=== PATIENT | female | born 1935 | race Caucasian/White ===

== ENCOUNTER 2018-03-04 21:56 | Emergency (ER) | payer MEDICARE, OTHER ==
[~2018-03-04] VITALS: Ht 162.6 cm; Wt 87.1 kg
[~2018-03-04 21:56] MED LIST: BYSTOLIC10 MG; IBUPROFEN 800800 MG PO; NORVASC 2.5 MG2.5 M1 PO; PROPRANOLOL 8080 MG; PROTONIX40 MG PO; PROVENTIL; SYNTHROID100 MCG; ULTRAM 50MG TAB50 MG PO; VALIUM5 MG; VESICARE10 M1; XALATAN2.5 ML OPHTHALMIC; ZYRTEC10 M5 PO
[2018-03-04 23:18] VITALS: BP 188/81
== END 2018-03-04 23:19 | disposition home or self-care (01) ==
LOC: M.ERS 21:56
DX: S63.591A Other specified sprain of right wrist, initial encounter (principal); I10 Essential (primary) hypertension; J45.909 Unspecified asthma, uncomplicated; Z88.8 Allergy status to other drugs, medicaments and biological substances; Z88.6 Allergy status to analgesic agent; Z88.5 Allergy status to narcotic agent; Z88.0 Allergy status to penicillin; Z88.2 Allergy status to sulfonamides; W18.39XA Other fall on same level, initial encounter; Y93.89 Activity, other specified; Y92.89 Other specified places as the place of occurrence of the external cause; Y99.8 Other external cause status

== ENCOUNTER 2018-03-16 09:32 | Inpatient (IN) | payer MEDICARE, OTHER ==
[~2018-03-16] VITALS: Ht 162.6 cm; Wt 86.1 kg
[2018-03-16 09:36] VITALS: BP 205/76
[2018-03-16] MEDS ORDERED: SYNTHROID175 MCG PO (09:43)
[2018-03-16] MEDS ORDERED: CLONAZEPAM 1 MG1 M1 PO (09:44)
[2018-03-16 09:50] LABS: ABSOLUTE EOSINOPHILS 0.1 thou/uL (0.0-0.7); ABSOLUTE LYMPHOCYTES 3.1 thou/uL (0.8-5.3); ABSOLUTE MONOCYTES 0.8 thou/uL (0.0-1.2); ABSOLUTE NEUTROPHILS 4.2 thou/uL (1.6-8.1); BASOPHILS 0.6 %; HEMATOCRIT 38.9 % (37.0-47.0); HEMOGLOBIN 13.3 gm/dL (12.0-15.0); LYMPHOCYTES 37.6 %; MCH 29.9 pg (26.0-34.0); MCHC 34.2 g/dL (28.0-37.0); MCV 87.4 fL (80.0-100.0); MONOCYTES 9.3 %; MPV 9.5 fl. (7.2-11.1); NUCLEATED RBCS 0 /100WBC; PLATELET COUNT* 212 thou/uL (150-400); POLYS 51.5 %; RBC 4.45 mil/uL (4.20-5.00); RDW-CV 13.8 % (10.5-14.5); WBC 8.2 thou/uL (4.0-11.0)
--- NOTE | 2018-03-16 09:55 | NUR ---
PATIENT COMPLAINS OF SHARP TYPE OF CHEST DISCOMFORT THAT BEGAN TODAY AT APPROX 0830 PATIENT DENIES RADIATION OF DISCOMFORT PAIN LASTS FOR "A SECOND" AND THEN RESOLVES ON ITS OWN. DENIES N/V DENIES DIAPHORESIS PATIENT IS CURRENTLY PAIN FREE
[2018-03-16 09:59] LABS: ANION GAP 7 mmol/L (7-16); BUN 22 mg/dL (7-18); CALCIUM 9.4 mg/dL (8.5-10.1); CHLORIDE 105 mmol/L (98-107); CO2 28 mmol/L (21-32); CREATININE 1.1 mg/dL (0.6-1.3); GLUCOSE 129 mg/dL (70-99); POTASSIUM 4.2 mmol/L (3.5-5.1); SODIUM 140 mmol/L (136-145)
[2018-03-16 10:02] LABS: INR 1.1; PROTIME 10.6 Seconds (9.20-11.50)
[2018-03-16 10:18] LABS: ALBUMIN 3.6 g/dL (3.4-5.0); ALKALINE PHOSPHATASE 65 U/L (46-116); LIPASE 125 U/L (73-393); MAGNESIUM 1.8 mg/dL (1.8-2.4); NT-PRO BRAIN NAT PEPTIDE 142 pg/mL (<300); SGOT 19 U/L (15-37); SGPT 21 U/L (30-65); TOTAL BILIRUBIN 0.5 mg/dL (<0.1-1.0); TOTAL PROTEIN 7.2 g/dL (6.4-8.2)
--- NOTE | 2018-03-16 10:26 | NUR ---
DR RENEE TO EVALUATE
[2018-03-16 10:32] LABS: TROPONIN-I LEVEL <0.06 ng/mL (<0.06)
[2018-03-16 12:54] VITALS: BP 166/77
[2018-03-16 13:15] VITALS: BP 159/63
[2018-03-16] MEDS ORDERED: CLARITIN10 MG PO (14:26)
[2018-03-16] MEDS ORDERED: VITAMIN D3400 UNIT PO (14:27)
[2018-03-16 15:53] VITALS: BP 148/56
--- NOTE | 2018-03-16 18:58 | NUR ---
PT ADMITTED TO ROOM 209 VIA CART FROM ED AT APPROXIMATELY 1315 WITH CHEST PAIN. REPORT RECEIVED FROM FELIZ ED RN. PT ORIENTED TO ROOM AND CALL LIGHT. ADMISSION ASSESSMENT AND HISTORY COMPLETED. REFER TO CHARTING. PT A&0X4, DENIES ANY PAIN OR SHORTNESS OF BREATH AT THIS TIME. NEIGHBOR AT BEDSIDE. PT DENIES ANY CHEST PAIN. PT TRACING SR ON THE CLOCK AND WATCH HANDS DIPPER. ON RA SAT UPPER 90'S. PT UP WITH 1 ASSIST TO BATHROOM. PT HAS BRACE FOR RIGHT ARM TO USE PRN FROM RECENT INJURY. CARDIOLOGY CONSULT IN PLACE. NO NEW ORDERS RECEIVED AT THIS TIME. TROPONINS NEGATIVE X2. MEDICATIONS PER JAN. PT REPOSITIONS SELF. HOURLY ROUNDING OBSERVED. BED IN LOW POSITION. BED ALARM IN PLACE. FALL PRECAUTIONS IN PLACE. CALL LIGHT WITHIN REACH. WILL CONTINUE PLAN OF CARE.
[2018-03-16 20:00] VITALS: BP 148/73
[2018-03-17] VITALS (7 sets, daily range): BP systolic 127–165; BP diastolic 52–72
[2018-03-17 05:10] LABS: ABSOLUTE BASOPHILS 0.1 thou/uL (0.0-0.2); ABSOLUTE EOSINOPHILS 0.1 thou/uL (0.0-0.7); ABSOLUTE LYMPHOCYTES 3.3 thou/uL (0.8-5.3); ABSOLUTE MONOCYTES 0.9 thou/uL (0.0-1.2); ABSOLUTE NEUTROPHILS 3.7 thou/uL (1.6-8.1); BASOPHILS 0.6 %; EOSINOPHILS 1.8 %; HEMATOCRIT 38.2 % (37.0-47.0); HEMOGLOBIN 12.6 gm/dL (12.0-15.0); LYMPHOCYTES 40.5 %; MCH 29.2 pg (26.0-34.0); MCHC 33.1 g/dL (28.0-37.0); MCV 88.1 fL (80.0-100.0); MONOCYTES 10.6 %; NUCLEATED RBCS 0 /100WBC; PLATELET COUNT* 192 thou/uL (150-400); POLYS 46.5 %; RBC 4.33 mil/uL (4.20-5.00); RDW-CV 13.8 % (10.5-14.5)
[2018-03-17 05:20] LABS: CALCIUM 8.9 mg/dL (8.5-10.1); CREATININE 1.2 mg/dL (0.6-1.3); POTASSIUM 3.9 mmol/L (3.5-5.1)
--- NOTE | 2018-03-17 07:45 | NUR ---
PATIENT RESTED IN BED NO ACUTE CHANGES. PATIENT DID NOT COMPLAIN OF CHEST PAIN. PATIENT DID NOT SHOW SIGNS OF DISTRESS. FALL PRECAUTIONS IN PLACE, BED ALARM ON, CALL LIGHT WITHIN.
--- NOTE | 2018-03-17 07:48 | NUR ---
PATIENT RESTED IN BED. PATIENT IS NPO, NO ACUTE CHANGES. PATIENT DID NOT SHOW SIGNS OF DISTRESS. FALL PRECAUTIONS IN PLACE, CALL LIGHT WITHIN REACH, BED ALARM ON. PATIENT PULLED OUT IV'S, NEW IV STARTED.
--- NOTE | 2018-03-17 12:07 | NUR ---
ASSUMED CARE OF PT AT 0730. PT RESTING IN BED WAITING FOR BREAKFAST. PT A&0X4, DENIES ANY PAIN OR SHORTNESS OF BREATH. PT IS READY TO GO HOME AND WANTS TO FOLLOW UP WITH DR ADALID STORM. PT STATES SHE HAS HAD NO CHEST PAIN TODAY BUT DID HAVE 2 EPISODES OVER NIGHT AT APPROXIMATELY 2030 AND 2100 WHERE PAIN WAS IN LEFT AXILLARY THAT LASTED A SHORT AMOUNT OF TIME. PT TRACING SR ON THE EXTRUDING PRESS ADJUSTER. ON RA SAT UPPER 90'S. PT UP SBA TO BATHROOM. POSSIBLE DISCHARGE HOME TODAY PENDING CARDIOLOGY. AM ASSESMENT CHARTED. MEDICATIONS PER JAN. PT REPOSITIONS SELF. HOURLY ROUNDING OBSERVED. BED IN LOW POSITION. BED ALARM IN PLACE. FALL PRECAUTIONS IN PLACE. CALL LIGHT WITHIN REACH. WILL CONTINUE PLAN OF CARE.
--- NOTE | 2018-03-17 13:47 | NUR ---
DISCHARGE ORDERS RECEIVED. DISCHARGE INSTRUCTIONS, CARE NOTES AND FOLLOW UP APPTS GIVEN TO PT. PT COMMUNICATES UNDERSTANDING OF DISCHARGE TEACHING. IV AND EXCHANGE ENGINEER REMOVED. PT DISCHARGED WITH ALL BELONGINGS AND PAPERWORK VIA WHEELCHAIR WITH NURSING STAFF TO FRIENDS OWN PERSONAL VEHICLE.
--- NOTE | 2018-03-17 16:52 | EKG ---
[place] [address] ELECTROCARDIOGRAM REPORT Name: JUAN F DING Room: [address] DIS IN M.R.#: [id number] Admission: 03/16/18 Attend Phys: Farhad Khoury MD Discharge: 03/17/18 Date of : 35 Report #: [id number] THIS REPORT FOR: //name// [facility] Test Date: 2018-03-16 Test Time: 09:38:32 Pat Name: JUAN F DING Department: Room: [address] Gender: F Cripple Chaser: FABIO : 1935 Requested By: Everardo Roberto Order Number: [id number] Olena MD: Niles Gamez Measurements Intervals [place] Rate: 78 P: -7 [place]: 135 QRS: 53 QRSD: 96 T: 34 QT: 368 QTc: 420 Interpretive Statements Sinus rhythm Compared to ECG 01/02/2013 04:38:08 ST (T wave) deviation no longer present Electronically Signed On 03-17-2018 16:52:01 CDT by Niles Gamez [email or web address] <ELECTRONICALLY SIGNED> By: Niles Gamez MD, [facility] 03/17/18 7766 0938 0938 Niles Gamez MD, [facility] /EPI
--- NOTE | 2018-03-17 16:53 | EKG ---
[place] [address] ELECTROCARDIOGRAM REPORT Name: JUAN F DING Room: [address] IN M.R.#: [id number] Admission: 03/16/18 Attend Phys: Farhad Khoury MD Discharge: 03/17/18 Date of : 35 Report #: [id number] THIS REPORT FOR: //name// [facility] Test Date: 2018-03-16 Test Time: 15:57:34 Pat Name: JUAN F DING Department: Room: [address] Gender: F Construction Laborer: : 1935 Requested By: Everardo Roberto Order Number: [id number] Olena MD: Niles Gamez Measurements Intervals [place] Rate: 69 P: 58 [place]: 138 QRS: 11 QRSD: 99 T: 24 QT: 404 QTc: 433 Interpretive Statements Sinus rhythm Compared to ECG 01/02/2013 04:38:08 ST (T wave) deviation no longer present Electronically Signed On 03-17-2018 16:53:40 CDT by Niles Gamez [email or web address] <ELECTRONICALLY SIGNED> By: Niles Gamez MD, [facility] 03/17/18 1653 1557 1557 Niles Gamez MD, [facility] /EPI
--- NOTE | 2018-03-17 16:56 | EKG ---
[place] [address] ELECTROCARDIOGRAM REPORT Name: JUAN F DING Room: [address] IN M.R.#: [id number] Admission: 03/16/18 Attend Phys: Farhad Khoury MD Discharge: 03/17/18 Date of : 35 Report #: [id number] THIS REPORT FOR: //name// [facility] Test Date: 2018-03-16 Test Time: 22:11:14 Pat Name: JUAN F DING Department: Room: [facility] Gender: F Cycle Analyst: DELILAH : 1935 Requested By: Everardo Roberto Order Number: [id number] MD: Niles Gamez Measurements Intervals [place] Rate: 70 P: 62 [place]: 135 QRS: -1 QRSD: 95 T: 24 QT: 389 QTc: 420 Interpretive Statements Sinus rhythm Compared to ECG 01/02/2013 04:38:08 ST (T wave) deviation no longer present Electronically Signed On 03-17-2018 16:56:32 CDT by Niles [email or web address] <ELECTRONICALLY SIGNED> By: Niles Gamez MD, [facility] 03/17/18 1656 221 10 Niles Gamez MD, [facility] /EPI
--- NOTE | 2018-03-17 18:00 | CON ---
[address] [address] CONSULTATION Name: JUAN F DING Room: [address] IN ..#: [id number] Admission: 03/16/18 Attend Phys: Farhad Khoury MD Discharge: 03/17/18 Date of : 35 Report #: [id number] THIS REPORT FOR: //name// CC: Farhad Greene MD [facility] Rakesh Antoinette Curry DO DATE OF SERVICE: 03/16/2018 INDICATION: Chest pain. HISTORY OF PRESENT ILLNESS: The patient is a very pleasant 82-year-old white female with a history of apparent aortic stenosis and left ventricular hypertrophy and possible outflow tract obstruction. She presented to the Emergency Room this morning with complaints of a sharp pain starting in the left breast area and radiating down toward her waist. The symptom recurred several times lasting a few seconds each time. The pain has now resolved. She is without other significant complaint. She does have dyspnea on exertion, but denies any orthopnea or paroxysmal nocturnal dyspnea. She does report some lower extremity swelling on occasion. PAST MEDICAL HISTORY: 1. Aortic stenosis with possible left ventricular outflow tract obstruction and left ventricular hypertrophy. 2. Hypertension. 3. Hyperlipidemia. 4. Asthma. 5. History of skin cancer under her right eyelid status post surgical resection. PAST SURGICAL HISTORY: 1. Cholecystectomy. 2. Hysterectomy. 3. Bilateral foot surgery. FAMILY HISTORY: Positive for heart disease. SOCIAL HISTORY: The patient does not smoke. She does not drink. She is . She has 3 sons. ALLERGIES: METOPROLOL, TYLENOL, CODEINE, PENICILLIN, SULFA. HOME MEDICATIONS: Amlodipine 2.5 mg daily, vitamin D3 400 units daily, clonazepam 1 mg at bedtime, Xalatan eye drops 1 drop at bedtime, Synthroid 175 mcg daily, Claritin [place] [address] CONSULTATION Name: JUAN F DING Room: [address]#: [id number] Admission: 03/16/18 Attend Phys: Farhad Khoury MD Discharge: 03/17/18 Date of : 35 Report #: [id number] REVIEW OF SYSTEMS: A 14-point review of systems is positive for some mild weakness of her right foot. She has palpitations on occasion. She reports chest discomfort, dyspnea. She has a heart murmur. She has lower extremity edema. She reports hypothyroidism. She has a history of anemia prior to her hysterectomy. She has history of skin cancer as outlined above. She reports seasonal and medical allergies. 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 She wears reading glasses. She has no acute loss in vision. She has decreased hearing. PHYSICAL EXAMINATION: VITAL SIGNS: Stable. Blood pressure 148/56, pulse is 70 and regular. GENERAL: This is a pleasant lady in no distress. Mood and affect appropriate. HEENT: Extraocular muscles intact. Mucous membranes are moist. NECK: Shows no jugular venous distention. There is a cardiac murmur radiating to the carotids bilaterally. CHEST: Reveals clear lung roman without wheezes or rales. CARDIOVASCULAR: Reveals a regular rhythm with a grade 3/6 systolic ejection murmur. I do not appreciate a gallop. ABDOMEN: Reveals normal bowel sounds. The abdomen is soft and nontender. EXTREMITIES: Shows trace edema. SKIN: Warm and dry. Peripheral pulses 2+ and palpable. IMPRESSION AND RECOMMENDATION: 1. Atypical chest pain. The patient has ruled out thus far for myocardial infarction. Would recommend completing an evaluation with serial troponins. EKG appears unremarkable. 2. Aortic stenosis, currently follows with outside Cardiology in the fashion of surveillance at this time. 3. Hypertension. Blood pressure appears to be adequately controlled presently. 4. Hyperlipidemia, apparently being followed by outside physician. <ELECTRONICALLY SIGNED> By: Niles Gamez MD, [facility]ACC 03/17/18 1800 1600 1750Micveronica Gamez MD, FACC /nt
== END 2018-03-17 13:50 | disposition home or self-care (01) | DRG 307 ==
LOC: M.ERS 09:32 → M.TBA-ER 10:14 → M.2W 10:14
PROVIDERS: Family Medicine; ADMIT Internal Medicine
DX: I35.0 Nonrheumatic aortic (valve) stenosis (principal); I12.9 Hypertensive chronic kidney disease with stage 1 through stage 4 chronic kidney disease, or unspecified chronic kidney disease; N18.3 Chronic kidney disease, stage 3 (moderate); I20.9 Angina pectoris, unspecified; M19.90 Unspecified osteoarthritis, unspecified site; E78.5 Hyperlipidemia, unspecified; J45.30 Mild persistent asthma, uncomplicated; Z88.5 Allergy status to narcotic agent; Z88.0 Allergy status to penicillin; Z88.2 Allergy status to sulfonamides; Z88.8 Allergy status to other drugs, medicaments and biological substances; Z90.49 Acquired absence of other specified parts of digestive tract; Z90.710 Acquired absence of both cervix and uterus; Z82.49 Family history of ischemic heart disease and other diseases of the circulatory system; Z79.899 Other long term (current) drug therapy

== ENCOUNTER → 2018-07-10 | Outpatient (CLI) | payer MEDICARE, OTHER ==
[~2018-07-10] MED LIST changes: +CLARITIN10 MG PO; +CLONAZEPAM 1 MG1 M1 PO; +SYNTHROID175 MCG PO; +VITAMIN D3400 UNIT PO
[2018-07-10 12:13] LABS: HEMATOCRIT 38.8 % (37.0-47.0); MCH 29.6 pg (26.0-34.0); MCHC 33.5 g/dL (28.0-37.0); MCV 88.5 fL (80.0-100.0); MPV 9.5 fl. (7.2-11.1); RBC 4.39 mil/uL (4.20-5.00); RDW-CV 14.1 % (10.5-14.5); WBC 8.4 thou/uL (4.0-11.0)
[2018-07-10 12:37] LABS: CALCIUM 9.5 mg/dL (8.5-10.1); CREATININE 1.1 mg/dL (0.6-1.3); POTASSIUM 4.4 mmol/L (3.5-5.1)
== END ==
LOC: M.LAB 11:43
PROVIDERS: Podiatrist
DX: Z01.812 Encounter for preprocedural laboratory examination (principal); I10 Essential (primary) hypertension; J45.909 Unspecified asthma, uncomplicated

== ENCOUNTER 2020-02-04 13:14 | Inpatient (IN) | payer MEDICARE, OTHER ==
[~2020-02-04] VITALS: Ht 165.1 cm; Wt 81.2 kg
[~2020-02-04 13:14] MED LIST changes: -VITAMIN D3400 UNIT PO; +VITAMIN D35000 UNI2 PO
[2020-02-04 13:19] VITALS: BP 152/108
[2020-02-04 13:42] LABS: ABSOLUTE EOSINOPHILS 0.1 thou/uL (0.0-0.7); ABSOLUTE LYMPHOCYTES 1.2 thou/uL (0.8-5.3); ABSOLUTE MONOCYTES 0.7 thou/uL (0.0-1.2); ABSOLUTE NEUTROPHILS 6.1 thou/uL (1.6-8.1); BASOPHILS 0.5 %; EOSINOPHILS 1.4 %; HEMATOCRIT 35.9 % (37.0-47.0); HEMOGLOBIN 12.3 gm/dL (12.0-15.0); LYMPHOCYTES 14.5 %; MCH 30.2 pg (26.0-34.0); MCHC 34.4 g/dL (28.0-37.0); MCV 87.8 fL (80.0-100.0); MONOCYTES 8.8 %; MPV 9.5 fl. (7.2-11.1); NUCLEATED RBCS 0 /100WBC; PLATELET COUNT* 225 thou/uL (150-400); POLYS 74.8 %; RBC 4.09 mil/uL (4.20-5.00); RDW-CV 14.2 % (10.5-14.5); WBC 8.1 thou/uL (4.0-11.0)
[2020-02-04 13:50] LABS: CALCIUM 9.1 mg/dL (8.5-10.1); CREATININE 1.4 mg/dL (0.6-1.3); POTASSIUM 3.7 mmol/L (3.5-5.1)
[2020-02-04 13:52] LABS: APTT 29.2 Seconds (25.0-31.3); INR 1.1; PROTIME 11.2 Seconds (9.20-11.50)
[2020-02-04 13:57] LABS: ALBUMIN 3.4 g/dL (3.4-5.0); TOTAL BILIRUBIN 0.3 mg/dL (<0.1-1.0)
--- NOTE | 2020-02-04 16:30 | NUR ---
admit from er to 204 telephone report given prior to arrival patient to via cart assisted to bed family at bedside patient denies pain
[2020-02-04 16:40] VITALS: BP 147/63
--- NOTE | 2020-02-04 16:50 | EKG ---
[place] [address] ELECTROCARDIOGRAM REPORT Name: JUAN F DING Room: [facility]11 ADM IN M.R.#: [id number] Admission: 02/04/20 Attend Phys: Monty Malin Discharge: Date of : 35 Date of Service: 02/04/20 1337 Report #: [id number] THIS REPORT FOR: //name// [facility] ED Test Date: 2020-02-04 Test Time: 13:37:41 Pat Name: JUAN F DING Department: Room: [facility] Gender: F Division Controller: : 1935 Requested By: Everardo Roberto Order Number: [id number] MD: Nixon Freeman Measurements Intervals [place] Rate: 59 P: 63 ME: 142 QRS: 30 QRSD: 105 T: 30 QT: 433 QTc: 429 Interpretive Statements Sinus rhythm Compared to ECG 03/16/2018 22:11:14 No significant changes Electronically Signed On 02-04-2020 16:48:51 CDT by Nixon Freeman [email or web address] <ELECTRONICALLY SIGNED> By: Nixon Freeman MD, [facility] 02/04/20 1648 1337 1337 Nixon Freeman MD, [facility] /EPI
[2020-02-04 17:00] VITALS: BP 145/55
[2020-02-04] MEDS ORDERED: VERAPAMIL ER240 M1 PO (18:55)
[2020-02-04] MEDS ORDERED: SPIRONOLACTONE25 MG PO (18:56)
[2020-02-04] MEDS ORDERED: CLONAZEPAM 0.50.5 M1 PO (18:57)
[2020-02-04] MEDS ORDERED: ZINC SULFATE220 MG PO (19:00)
[2020-02-04] MEDS ORDERED: VITAMIN B-121000 MC2 PO (19:03)
[2020-02-04 20:34] VITALS: BP 116/58
[2020-02-05] VITALS (7 sets, daily range): BP systolic 114–151; BP diastolic 43–75
[2020-02-05 05:42] LABS: ABSOLUTE BASOPHILS 0.1 thou/uL (0.0-0.2); ABSOLUTE EOSINOPHILS 0.3 thou/uL (0.0-0.7); ABSOLUTE LYMPHOCYTES 2.6 thou/uL (0.8-5.3); ABSOLUTE NEUTROPHILS 3.3 thou/uL (1.6-8.1); BASOPHILS 0.7 %; EOSINOPHILS 3.9 %; HEMATOCRIT 31.2 % (37.0-47.0); HEMOGLOBIN 10.8 gm/dL (12.0-15.0); MCH 30.5 pg (26.0-34.0); MCHC 34.6 g/dL (28.0-37.0); MCV 88.1 fL (80.0-100.0); MONOCYTES 13.2 %; MPV 9.9 fl. (7.2-11.1); NUCLEATED RBCS 0 /100WBC; PLATELET COUNT* 190 thou/uL (150-400); POLYS 46.2 %; RBC 3.54 mil/uL (4.20-5.00); RDW-CV 13.9 % (10.5-14.5); WBC 7.3 thou/uL (4.0-11.0)
[2020-02-05 06:05] LABS: ALBUMIN 2.7 g/dL (3.4-5.0); CALCIUM 8.3 mg/dL (8.5-10.1); CREATININE 1.1 mg/dL (0.6-1.3); MAGNESIUM 1.7 mg/dL (1.8-2.4); PHOSPHORUS* 3.7 mg/dL (2.5-4.9); POTASSIUM 3.3 mmol/L (3.5-5.1); TOTAL BILIRUBIN 0.2 mg/dL (<0.1-1.0); TOTAL PROTEIN 5.7 g/dL (6.4-8.2)
--- NOTE | 2020-02-05 07:47 | NUR ---
PT IS ABLE TO COMMUNICATE HER NEEDS TO STAFF EFFECTIVELY. SHE HAS DENIED THE NEED FOR PAIN MEDICATION UP TO THIS TIME. RIGHT HIP XR SCHEDULED FOR LATER TODAY; PT C/O PAIN IN HIP; HAD RECENT, AT HOME, FALL. Q SHIFT ORTHOSTATIC BPs, FIRST SET THIS MORNING WERE NEGATIVE.
[2020-02-05 11:05] LABS: URINE BILIRUBIN NEGATIVE (Negative); URINE BLOOD 3+ (Negative); URINE CLARITY CLEAR; URINE COLOR YELLOW; URINE GLUCOSE-RANDOM NEGATIVE (Negative); URINE KETONES NEGATIVE (Negative); URINE LEUKOCYTES-REFLEX 1+ (Negative); URINE NITRITE-REFLEX NEGATIVE (Negative); URINE PROTEIN NEGATIVE (Negative); URINE UROBILINOGEN 0.2 E.U./dl (0.2-1.0)
[2020-02-05 11:12] LABS: SQUAMOUS 4-10 Moderate /LPF (0-3)
[2020-02-05 11:13] LABS: URINE WBC-REFLEX 6-15 Few /HPF (0-5)
[2020-02-05 11:14] LABS: BACTERIA-REFLEX >30 Many /HPF (None Seen); MUCUS 4-6 Moderate strn/LPF (None Seen)
[2020-02-05 11:15] LABS: CASTS None Seen /LPF (None Seen)
[2020-02-05 11:16] LABS: CRYSTALS None Seen /LPF (None Seen)
--- NOTE | 2020-02-05 15:28 | NUR ---
Pt sound asleep when CM went to assess, will f/u later
--- NOTE | 2020-02-05 17:37 | NUR ---
PT IS A/O X4,VSS-ORTHOSTATICS COMPLETED.LIFE SCIENTISTS IN PLACE.PT WORKED WITH OT.US CAROTID COMPLETED,HIP XRAY COMPLETED,EEG COMPLETED,AND PT ATTEMPTED MRI BUT WAS NOT ABLE TO COMPLETED DUE TO C/O PAIN IN LOWER BACK.DOCTOR NOTIFIED TO REQUEST SOMETHING FOR PT PAIN.BLOOD CULTURE POSITIVE FOR GRAM + COCCI-ID CONSULTED WITH NEW IV ANTIBIOTICS GIVEN.PT HAS HAD SEVERAL LOOSE STOOLS.SAMPLE COLLECTED FOR CDIFF RULE OUT-PT PLACED IN SPECIAL CONTACT ISOLTAION.ELECTROLYTES REPLACED.HOURLY ROUNDING COMPLETED FOR PT SAFETY.CALL LIGHT AND FALL PRECAUTIONS IN PLACE.WILL CONTINUE TO MONITOR FOR DURATION OF SHIFT.
--- NOTE | 2020-02-05 18:31 | 2DMMODE ---
[place] [address] 2 D/M-MODE ECHOCARDIOGRAM Name: JUAN F DING Room: [address] IN [facility].#: [id number] Admission: 02/04/20 Attend Phys: Monty Malin Discharge: Date of : 35 Date of Service: 02/05/20 1829 Report #: [id number] THIS REPORT FOR: cc: Rakesh Curry Gregg R. DO Liston, Michael J. MD [facility] ~ APPROVED REPORT Study performed: 02/05/2020 10:41:05 EXAM: Comprehensive 2D, Doppler, and color-flow Echocardiogram Patient Location: In-Patient Room #: Formerly named [facility] Status: routine BSA: 1.91 HR: 63 bpm BP: 121/49 mmHg Rhythm: NSR Other Information Study Quality: Good Indications CVA/TIA Echo Enhancing Agent Indication: Rule out Shunt Agent(s) / Amount(s) Used: Agitated Saline 10 cc 2D Dimensions IVSd: 9.62 (7-11mm) LVOT Diam: 19.54 (18-24mm) LVDd: 49.20 mm PWd: 10.22 (7-11mm) Ascending Ao: 32.20 (22-36mm) LVDs: 27.04 (25-40mm) Aortic Root: 27.60 mm Volumes Left Atrial Volume (Systole) LA ESV Index: 39.70 mL/m2 Aortic Valve AoV Peak Carlo.: 2.86 m/s AO Peak Gr.: 32.79 mmHg LVOT Max P.79 mmHg AO Mean Gr.: 20.09 mmHg LVOT Mean P.44 [place] [address] 2 D/M-MODE ECHOCARDIOGRAM Name: DANA DINGIE Kirk Room: [address] IN ..#: [id number] Admission: 02/04/20 Attend Phys: Monty Malin Discharge: Date of : 35 Date of Service: 02/05/20 1829 Report #: [id number] LVOT Max V: 1.09 m/s AO V2 VTI: 70.49 cm LVOT Mean V: 0.73 m/s NYDIA (VTI): 1.16 cm2 LVOT V1 VTI: 27.31 cm AI Mower: 2.07 m/s2 AI PHT: 595.27 ms Mitral Valve E/A Ratio: 1.18 MV Decel. Time: 198.98 ms MV E Max Carlo.: 1.20 m/s MV PHT: 57.70 ms MVA (PHT): 3.81 cm2 TDI E/Lateral E': 13.33 E/Medial E': 13.33 Medial E' Carlo.: 0.09 m/s Lateral E' Carlo.: 0.09 m/s Pulmonary Valve PV Peak Carlo.: 0.79 m/s PV Peak Gr.: 2.47 mmHg Tricuspid Valve RAP Estimate: 5.00 mmHg TR Peak Gr.: 23.35 mmHg RVSP: 28.00 mmHg PA Pressure: 28.00 mmHg Left Ventricle The left ventricle is normal size. There is normal LV segmental wall motion. There is normal left ventricular wall thickness. Left ventricular systolic function is normal. LVEF is 65-70%. Transmitral Doppler flow pattern suggests impaired LV relaxation. Right Ventricle The right ventricle is normal size. The right ventricular systolic function is normal. Atria Left atrium is mildly dilated. The interatrial septum is intact with no evidence for an atrial septal defect. The right atrium size is normal. Aortic Valve Moderate aortic valve sclerosis. Mild aortic regurgitation. Moderate aortic stenosis[place] [address] 2 D/M-MODE ECHOCARDIOGRAM Name: JUAN F DING Room: [address] IN [facility]#: [id number] Admission: 02/04/20 Attend Phys: Monty Malin Discharge: Date of : 35 Date of Service: 02/05/20 1829 Report #: [id number] There is mitral annular calcification. Mild mitral regurgitation. No evidence of mitral valve stenosis. Tricuspid Valve The tricuspid valve is normal in structure. Mild tricuspid regurgitation. The RVSP is 30-35 mmHg. Pulmonic Valve The pulmonary valve is normal in structure. There is no pulmonic valvular regurgitation. Great Vessels The aortic root is normal in size. IVC is normal in size and collapses >50% with inspiration. Pericardium There is no pericardial effusion. <Conclusion> The left ventricle is normal size. There is normal left ventricular wall thickness. Left ventricular systolic function is normal. LVEF is 65-70%. Transmitral Doppler flow pattern suggests impaired LV relaxation. Left atrium is mildly dilated. The interatrial septum is intact with no evidence for an atrial septal defect. Moderate aortic valve sclerosis. Mild aortic regurgitation. Moderate aortic stenosis. Mild mitral regurgitation. Mild tricuspid regurgitation. The RVSP is 30-35 mmHg. IVC is normal in size and collapses >50% with inspiration. <ELECTRONICALLY SIGNED> By: Niles Gamez MD, FACC 02/05/201828 28 28 Niles Gamez MD, FACC /INF
[2020-02-06] VITALS: BP 114/49
[2020-02-06 02:07] LABS: GLYCOHEMOGLOBIN (HGB A1C) 5.5 % (4.8-5.6)
[2020-02-06 04:00] VITALS: BP 96/49
[2020-02-06 05:01] LABS: HEMATOCRIT 31.9 % (37.0-47.0); HEMOGLOBIN 10.6 gm/dL (12.0-15.0); MCH 29.4 pg (26.0-34.0); MCHC 33.1 g/dL (28.0-37.0); MCV 88.8 fL (80.0-100.0); MPV 9.8 fl. (7.2-11.1); NUCLEATED RBCS 0 /100WBC; PLATELET COUNT* 197 thou/uL (150-400); RDW-CV 14.1 % (10.5-14.5)
--- NOTE | 2020-02-06 05:12 | NUR ---
PT IS ABLE TO COMMUNICATE HER NEEDS TO STAFF WITH VERY MINOR DIFFICULTY; SHE CAN BE CONFUSED AT TIMES AND IS EASILY DISTRACTED. CURRENT PAIN MEDICATION REGIMEN HAS BEEN ADEQUATE FOR CONTROLLING HER PAIN UPO TO THIS TIME. SHE HAS HAD SOME POSITIVE BLOOD CULTURES; INF. DISEASE IS FOLLOWING; MDs ARE AWARE. SPECIAL ISOLATION FOR PENDING C.DIFF TESTING HAS BEEN MAINTAINED.
[2020-02-06 05:23] LABS: ALBUMIN 2.6 g/dL (3.4-5.0); CALCIUM 8.2 mg/dL (8.5-10.1); CREATININE 1.1 mg/dL (0.6-1.3); MAGNESIUM 1.6 mg/dL (1.8-2.4); TOTAL BILIRUBIN 0.4 mg/dL (<0.1-1.0); TOTAL PROTEIN 5.6 g/dL (6.4-8.2)
[2020-02-06 05:24] LABS: POTASSIUM 4.5 mmol/L (3.5-5.1)
[2020-02-06 05:25] LABS: CHOLESTEROL 124 mg/dL (<200); HDL CHOLESTEROL 34 mg/dL (>40); LDL CHOLESTEROL 76 mg/dL (<100); TC:HDL 3.6 Ratio (Not establshd); TRIGLYCERIDE 72 mg/dL (<150); VLDL 14 mg/dL (<40)
[2020-02-06 05:26] LABS: SERUM ASSESSMENT CLEAR
[2020-02-06 06:26] LABS: ABSOLUTE EOSINOPHILS 0.1 thou/uL (0.0-0.7); ABSOLUTE LYMPHOCYTES 1.8 thou/uL (0.8-5.3); ABSOLUTE MONOCYTES 0.8 thou/uL (0.0-1.2); ABSOLUTE NEUTROPHILS 9.2 thou/uL (1.6-8.1); PLATELET ESTIMATE ADEQUATE
[2020-02-06 06:27] LABS: HYPOCHROMASIA 1+; MICROCYTES 1+
--- NOTE | 2020-02-06 07:41 | CON ---
[address] [address] CONSULTATION Name: JUAN F DING Room: [address] ADM IN M.R.#: [id number] Admission: 02/04/20 Attend Phys: Valentina Cazares Discharge: Date of : 35 Report #: [id number] THIS REPORT FOR: //name// cc: Rakesh Curry Gregg R. DO ~ THIS REPORT FOR: //name// CC: Rakesh Malin DATE OF SERVICE: 02/05/2020 INFECTIOUS DISEASE CONSULTATION ATTENDING PHYSICIAN: Dr. Malin. REASON FOR EVALUATION: Positive blood culture with Gram-positive cocci. HISTORY OF PRESENT ILLNESS: Chart reviewed, patient examined. This is an 84-year-old woman who presented to the Emergency Room subsequent to several falls, which she felt were due to slipping, did strike her head, complaining of some headache as well. Lactic acid 1.5. Chest x-ray showed no acute findings blood cultures x 2 were collected at that time now one of which is growing gram-positive cocci. She had undergone attempted MRI, but due to severe back pain, she was unable to complete it. At this point, she has rigors. These were not present earlier, she had been experiencing severe diarrhea as well during this stay, had been empirically started on ciprofloxacin and metronidazole. She has been afebrile. ALLERGIES: BETA BLOCKERS, PENICILLIN, SULFA, CODEINE, ACETAMINOPHEN, METOPROLOL. CURRENT MEDICATIONS: Include levothyroxine, metronidazole, levofloxacin, cholecalciferol, amlodipine, and spironolactone. PAST MEDICAL HISTORY: History of hypertension, mild asthma, previous cholecystectomy, hysterectomy, right eye surgery, tremors. SOCIAL HISTORY: Nonsmoker, no ethanol, no illicit drug use. FAMILY HISTORY: Noncontributory. REVIEW OF SYSTEMS: Admits to some mild dyspnea. Denies significant abdominal related pain. Otherwise, she has got the diarrhea. She notes the [place] [address] CONSULTATION Name: JUAN F DING Room: [address] IN [facility]#: [id number] Admission: 02/04/20 Attend Phys: Valentina Cazares Discharge: Date of : 35 Report #: [id number] PHYSICAL EXAMINATION: GENERAL: She is in moderate to marked distress secondary to the shaking chills. She is generally lucid, somewhat chronically ill, undernourished. VITAL SIGNS: Temperature 97.8, pulse 90, respirations 18, blood pressure 151/66. SKIN: Warm, dry, no rashes. HEENT: Otherwise, unremarkable. NECK: Supple. Extraocular muscles intact. LUNGS: Somewhat diminished overall, some basilar crackles. HEART: Regular, has a murmur. ABDOMEN: Soft, nontender, nondistended. EXTREMITIES: No cyanosis. GENITOURINARY AND RECTAL: Deferred. LABORATORY DATA: Lactic acid 0.8, most recently sed rate of 24. Urinalysis: 6-15 white cells, greater than 30 bacteria. Blood culture growth of gram-positive cocci, 1/. Electrolytes: Sodium 144, potassium 3.3, chloride 108, bicarbonate is 27, anion gap of 9, BUN and creatinine 18 and 1.1, glucose of 90. LFTs unremarkable. Albumin of 2.7. Her total protein 5.7. Liver functions unremarkable. Estimated GFR 47. CBC: White count 7.3, H and H 10.8 and 31.2, platelets of 190. ASSESSMENT: Positive blood culture in the setting of possible complicated urinary tract infection, although given the gram-positive cocci, I suspect may be unrelated or more favor gram-negative in the genitourinary tract infection. She is having shaking chills, seemed to be onset while she was down in Radiology, felt cold. We will continue broad-spectrum therapy. We will add vancomycin to cover gram-positives. Check stool studies, likely in the a.m. We will do a CT of the pelvis to evaluate. She is disinclined to repeat any studies this evening. Continue to monitor expectantly. Certainly appears quite ill at this point. <ELECTRONICALLY SIGNED> By: Atrhur Vizcarra MD 02/06/20 0741 1727 [id number] Vizcarra MD /nt
[2020-02-06 08:00] VITALS: BP 104/45
[2020-02-06 12:00] VITALS: BP 106/47
[2020-02-06 15:45] VITALS: BP 128/48
--- NOTE | 2020-02-06 15:51 | NUR ---
Pt is A&O. Resides at home alone. Independent. No DME. No hx of HH. Hx of skilled at [facility]. Pt unsure of dc needs, wants to figure out what is going on with her prior to making a decision. DPOA completed, copy on chart.
--- NOTE | 2020-02-06 16:50 | NUR ---
ASSUMED PT CARE AT 0800, AOX4, UP WITH ASSIST, O2 SAT 90'S RA. TRACING SR ON TELE. PT COMPLAINS OF BACK PAIN, WITH RELIEF WITH REPOSITION. PT HAD MRA/MRI HEAD. PT HAD CT ABDOMEN. PT REMOVED FROM ISO PER PROVIDER, NO LOOSE STOOL SINCE LAST NIGHT AND THIS SHIFT. IVF INFUSSING ORDER. VSS, AM ASSESSMENT CHARTED, MEDS GIVEN PER MAR, CALL LIGHT WITHIN REACH, WILL CONTINUE TO MONITOR.
[2020-02-06 20:00] VITALS: BP 126/55
[2020-02-07] VITALS: BP 125/90
[2020-02-07 04:00] VITALS: BP 142/57
[2020-02-07 04:31] LABS: HEMATOCRIT 33.2 % (37.0-47.0); HEMOGLOBIN 11.3 gm/dL (12.0-15.0); MCH 30.2 pg (26.0-34.0); MCHC 34.2 g/dL (28.0-37.0); MCV 88.2 fL (80.0-100.0); RBC 3.76 mil/uL (4.20-5.00); RDW-CV 14.3 % (10.5-14.5)
[2020-02-07 04:54] LABS: CALCIUM 8.3 mg/dL (8.5-10.1); CREATININE 1.2 mg/dL (0.6-1.3); MAGNESIUM 1.6 mg/dL (1.8-2.4); POTASSIUM 4.2 mmol/L (3.5-5.1)
--- NOTE | 2020-02-07 06:54 | NUR ---
ASSUMED PATIENT CARE AT 1900. ASSESSMENT COMPLETED CHARTED. PATIENT IS NSR ON THE MONITOR. HOURLY ROUNDING IN PLACE FOR PATIENT SAFETY. CLWR.
[2020-02-07 08:00] VITALS: BP 145/87
[2020-02-07 11:56] VITALS: BP 136/73
[2020-02-07 12:08] LABS: BE -2.3 mmol/L (-2 to +3); PCO2 37.1 mmHg (35.0-45.0); PO2 70.4 mmHg (75.0-100.0); pH 7.394 (7.340-7.450)
--- NOTE | 2020-02-07 13:43 | NUR ---
ASSUMED PT CARE AT 0800, AOX2, CONFUSED. O2 SAT 90'S RA. TRACING SR ON TELE. PT DENIES PAIN. PT GETTING MORE CONFUSED COMPARED YESTERDAY. NEURO ORDERED CT HEAD. AM ASSESSMENT CHARTED, MEDS GIVEN PER MAR, CALL LIGHT WITHIN REACH, WILL CONTINUE TO MONITOR.
[2020-02-07 16:35] VITALS: BP 144/78
[2020-02-07 20:00] VITALS: BP 125/48
[2020-02-08] VITALS: BP 137/58
[2020-02-08 04:00] VITALS: BP 155/65
[2020-02-08 08:33] LABS: ABSOLUTE EOSINOPHILS 0.4 thou/uL (0.0-0.7); ABSOLUTE LYMPHOCYTES 1.3 thou/uL (0.8-5.3); ABSOLUTE MONOCYTES 0.5 thou/uL (0.0-1.2); ABSOLUTE NEUTROPHILS 4.2 thou/uL (1.6-8.1); BASOPHILS 0.8 %; EOSINOPHILS 6.8 %; HEMATOCRIT 33.4 % (37.0-47.0); HEMOGLOBIN 11.4 gm/dL (12.0-15.0); LYMPHOCYTES 19.7 %; MCHC 34.2 g/dL (28.0-37.0); MCV 87.7 fL (80.0-100.0); MONOCYTES 8.3 %; MPV 8.3 fl. (7.2-11.1); NUCLEATED RBCS 0 /100WBC; PLATELET COUNT* 183 thou/uL (150-400); POLYS 64.4 %; RBC 3.81 mil/uL (4.20-5.00); RDW-CV 14.2 % (10.5-14.5); WBC 6.5 thou/uL (4.0-11.0)
--- NOTE | 2020-02-08 08:44 | NUR ---
ASSUMED PATIENT CARE AT 1900. ASSESSMENT COMPLETED CHARTED. PATIENT IS NSR ON THE MONITOR. HOURLY ROUNDING IN PLACE FOR PATIENT SAFETY. CLWR.
[2020-02-08 09:00] VITALS: BP 139/72
[2020-02-08 15:23] VITALS: BP 147/59
[2020-02-08 16:00] VITALS: BP 136/68
--- NOTE | 2020-02-08 18:30 | NUR ---
I ASSUMED CARE OF THE PATIENT AT 0700. SHE IS ALERT AND ORIENTED X4 AND IS UP WITH ASSIST OF 1 AND A WALKER. HOURLY ROUNDING IS COMPLETED AND PATIENT NEEDS ARE MET. PAIN IS DENIED. BED IS IN THE LOW LOCKED POSITION AND CALL LIGHT IS IN REACH. SHE USES THE BEDSIDE COMMODE. SHE HAS A NEW RIGHT FOREARM IV. WE ARE PENDING A STOOL SAMPLE. WILL CONTINUE TO MONITOR.
[2020-02-08 20:00] VITALS: BP 149/66
[2020-02-09] VITALS: BP 154/63
[2020-02-09 04:00] VITALS: BP 147/74
--- NOTE | 2020-02-09 04:37 | NUR ---
ASSUMED PATIENT CARE AT 1900. ASSESSMENT COMPLETED CHARTED. PATIENT IS NSR ON THE MONITOR. HOURLY ROUNDING IN PLACE FOR PATIENT SAFETY. CLWR.
[2020-02-09 09:43] LABS: HEMATOCRIT 34.8 % (37.0-47.0); HEMOGLOBIN 11.9 gm/dL (12.0-15.0); MCH 30.1 pg (26.0-34.0); MCHC 34.2 g/dL (28.0-37.0); MPV 9.4 fl. (7.2-11.1); RBC 3.96 mil/uL (4.20-5.00); RDW-CV 14.3 % (10.5-14.5)
[2020-02-09 09:51] LABS: CALCIUM 8.6 mg/dL (8.5-10.1); CREATININE 0.9 mg/dL (0.6-1.3); MAGNESIUM 1.8 mg/dL (1.8-2.4); POTASSIUM 3.8 mmol/L (3.5-5.1)
[2020-02-09 12:04] VITALS: BP 139/104
--- NOTE | 2020-02-09 14:25 | NUR ---
CM spoke with Pt regarding dispo, Pt in agreement with going to acute rehab. Per Pt, if she were to need
--- NOTE | 2020-02-09 14:26 | NUR ---
CM spoke with Pt regarding dispo, Pt is in agreement with going to acute rehab. Per Pt, if she were to need additional support post dc from acute rehab, she could go and stay with either of her sons. Following.
[2020-02-09 17:03] VITALS: BP 129/54
--- NOTE | 2020-02-09 19:00 | NUR ---
ASSUMED PT CARE AT 0730. ASSESSMENT COMPLETED CHARTED. ABLE TO MAKE NEEDS KNOWN. UP WITH 1 TO BSC. NO C/O PAIN OR DISCOMFORT. IV FLUIDS AND ABT RUNNING PER EMAR. RESTING IN BED MOST OF THE DAY. WILL CONTINUE TO MONITOR.
[2020-02-09 21:44] VITALS: BP 162/85
[2020-02-10] VITALS: BP 151/58
--- NOTE | 2020-02-10 04:04 | NUR ---
ASSUMED CARE OF PT 02/09/20 AT APPROX 1930. PT A&OX4, ON ROOM AIR, VSS. PAIN MED REQUESTED AND GIVEN ORDERED. ASSESSMENTS AND HOURLY ROUNDINGS COMPLETED. WILL CONTINUE TO MONITOR.
[2020-02-10 04:38] VITALS: BP 164/78
[2020-02-10 08:00] VITALS: BP 154/74
[2020-02-10] MEDS ORDERED: LEVOTHYROXINE137 MCG PO (12:42)
[2020-02-10] MEDS ORDERED: NORVASC5 MG PO (12:42)
[2020-02-10] MEDS ORDERED: BENTYL 20 MG TA20 M1 PO (12:42)
[2020-02-10] MEDS ORDERED: LOMOTIL TABLET1 EACH PO (12:42)
--- NOTE | 2020-02-10 12:46 | NUR ---
Pt medically stable to dc to acute rehab today, orders written, updated rehab specialist, waiting on bed assignment.
[2020-02-10 13:26] VITALS: BP 137/65
[2020-02-10 18:00] VITALS: BP 137/65
--- NOTE | 2020-02-10 19:35 | NUR ---
ASSUMED PT CARE AT 0730. ASSESSMENT COMPLETED CHARTED. ABLE TO MAKE NEEDS KNOWN. IV AND HEART MONITOR REMOVED. DISCHARGE APPROVED AND SENT UP TO REHAB AROUND 1929. CALL LIGHT WITHIN REACH. ALL BELONGINGS TAKEN WITH PT. NO C/O PAIN OR DISCOMFORT. STATES SHE DOESNT LIKE OUR DOCTORS AND WANTS "HER" DOCTOR TO MAKE THE DECISIONS HERE. WILL CONTINUE TO MONITOR ON REHAB.
--- NOTE | 2020-02-12 16:48 | CON ---
[address] [address] CONSULTATION Name: JUAN F DING Room: [address] IN M.R.#: [id number] Admission: 02/04/20 Attend Phys: Valentina Cazares Discharge: 02/10/20 Date of : 35 Report #: [id number] THIS REPORT FOR: //name// cc: Rakesh Curry DO Rakesh Curry DO ~ THIS REPORT FOR: //name// CC: Rakesh Malin DATE OF SERVICE: 02/05/2020 HISTORY OF PRESENT ILLNESS: This is an 84-year-old female patient who was seen by me to look for any neurological etiology for the patient's falls. The patient's history is not very clear. She indicated she had multiple falls in the last few days. She did not think she had falls before except one long time ago. She is fully conscious during this episode. It is not preceded with any dizziness. It looks like it is mechanical difficulty. It is tough to tell whether she gets weakness on the right side. She gives some history suggestive of that. REVIEW OF SYSTEMS: Indicated that she had diarrhea for a couple of weeks. She has some poorly defined history of headache. She had a lot of trouble with the left foot. She had multiple surgeries there. She does not believe there is any metal but if there is, she thinks it is stainless steel. She does not have any other metal in her body. REVIEW OF SYSTEMS: A 14-point review of systems was carried out and she does not give me any history of any new eye, ENT, cardiac, respiratory, GI, , musculoskeletal, constitutional, dermatological, hematological, psychiatric, throat or allergic symptom associated with present symptomatology. She does have symptoms as summarized above. She is complaining of some hip pain, some pain in the foot, but I do not know how much is new and how much is old because she has a pretty significant prior history. PAST MEDICAL HISTORY: Positive for problem of the left foot. FAMILY HISTORY: Unremarkable. SOCIAL HISTORY: She does not smoke or drink alcohol. PHYSICAL EXAMINATION: NEUROLOGIC: Indicates the patient is alert, responsive, able to follow simple and complex command. Her speech, concentration, fund of knowledge and memory is at her baseline. Cranial nerve examination 2-12 [place] [address] CONSULTATION Name: JUAN F DING Room: [address]#: [id number] Admission: 02/04/20 Attend Phys: Valentina Cazares Discharge: 02/10/20 Date of : 35 Report #: [id number] any definite abnormality. The patient has reasonable strength. The left foot is difficult to evaluate. Tone, reflexes are symmetrical. She says sensation is present on both lower extremities. Mfakvw-on-mfkh looks okay. I could not look at the patient's fundus. CARDIAC: Unremarkable. LUNGS: No respiratory difficulty was noticed. The pulses are palpable. HEENT: She is moderately built individual who does not have any dysmorphic features of eyes, ears and face. NECK: She has no thyroid mass. No carotid bruit. VITAL SIGNS: Blood pressure is 121/49, pulse is 69, temperature is 97.9. LABORATORY DATA: White count is 7.3. Potassium is 3.3. She did have a CT scan of the head, which demonstrates some diffuse disease, but nothing which is unusual. IMPRESSION: It is not possible to tell what the etiology of the patient's symptom is on clinical ground because multiple etiologies can cause these kind of symptoms. I think we need to proceed with MRI first to see if there is any etiology like stroke or normal pressure hydrocephalus there, which can explain the patient's symptoms. She is also having headaches, so I will check an MRA to look for any aneurysm and sed rate to make sure there is no temporal arteritis. If that is negative, we may have to work up the spine or look for some unusual etiologies like aortic aneurysm, etc. I did discuss with her MRI, did discuss with her that she has a metal in her body. I did discuss with her that the problem can occur, but since the metal has been put only 4 years ago, most of them are MRI compatible, but sometime problem, especially heating can occur. She understands that and she wants to proceed with MRI. <ELECTRONICALLY SIGNED> By: Jose Carlos Gurrola MD 02/12/20 1648 1221 [id number] Gurrola MD /nt
--- NOTE | 2020-02-12 16:48 | EEG ---
[address] [address] EEG STUDY REPORT Name: JUAN F DING Room: [address] IN M.R.#: [id number] Admission: 02/04/20 Attend Phys: Valentina Cazares Discharge: 02/10/20 Date of : 35 Report #: [id number] THIS REPORT FOR: //name// CC: Rakesh Malin DATE OF SERVICE: 02/05/2020 This patient had episode of syncope. EEG is being done to evaluate the possibility of seizure. EEG was done by placing the electrodes by standard 10-20 system of electrode placement. Both referential and sequential montages were used for recording. Background activity in this patient's EEG is about 10 Hz and 30 microvolts. The patient became drowsy that is associated with bilateral slowing. Photic stimulation is unremarkable. No active epileptiform activity was noticed. IMPRESSION: This patient's EEG is intermixed with theta range slowing on both sides. That is a nonspecific abnormality, which can occur with dementia, encephalopathy, effect of psychotropic medication, etc. It can also occur with drowsiness. Finding is mild and borderline and very nonspecific. <ELECTRONICALLY SIGNED> By: Jose Carlos Gurrola MD 02/12/20 1648 1822 1913Pbeatrice Gurrola MD /nt
== END 2020-02-10 19:59 | DRG 682 ==
LOC: M.ERS 13:14 → M.2W 14:56 → M.TBA-ER 14:56 → M.2W 16:54
PROVIDERS: Family Medicine; Internal Medicine; Psychiatry & Neurology Neurology; ADMIT Internal Medicine
DX: N17.0 Acute kidney failure with tubular necrosis (principal); G92 Toxic encephalopathy; D66 Hereditary factor VIII deficiency; E44.1 Mild protein-calorie malnutrition; R19.7 Diarrhea, unspecified; L98.8 Other specified disorders of the skin and subcutaneous tissue; E86.0 Dehydration; M25.559 Pain in unspecified hip; F03.90 Unspecified dementia, unspecified severity, without behavioral disturbance, psychotic disturbance, mood disturbance, and anxiety; E03.9 Hypothyroidism, unspecified; I10 Essential (primary) hypertension; Z90.710 Acquired absence of both cervix and uterus; Z90.49 Acquired absence of other specified parts of digestive tract; Z85.840 Personal history of malignant neoplasm of eye; Z79.899 Other long term (current) drug therapy; Z88.6 Allergy status to analgesic agent; Z88.1 Allergy status to other antibiotic agents; Z88.5 Allergy status to narcotic agent; Z88.2 Allergy status to sulfonamides; Z88.8 Allergy status to other drugs, medicaments and biological substances; Z82.49 Family history of ischemic heart disease and other diseases of the circulatory system; Z68.29 Body mass index [BMI] 29.0-29.9, adult

== ENCOUNTER 2020-02-10 19:21 | Inpatient (IN) | payer MEDICARE, OTHER ==
[~2020-02-10] VITALS: Ht 165.1 cm; Wt 79.4 kg
[~2020-02-10 19:21] MED LIST changes: +BENTYL 20 MG TA20 M1 PO; +CLONAZEPAM 0.50.5 M1 PO; +LEVOTHYROXINE137 MCG PO; +LOMOTIL TABLET1 EACH PO; +NORVASC5 MG PO; +SPIRONOLACTONE25 MG PO; +VERAPAMIL ER240 M1 PO; +VITAMIN B-121000 MC2 PO; +ZINC SULFATE220 MG PO
[2020-02-10 20:30] VITALS: BP 150/61
[2020-02-11 05:06] LABS: HEMATOCRIT 33.4 % (37.0-47.0); HEMOGLOBIN 11.2 gm/dL (12.0-15.0); MCH 30.6 pg (26.0-34.0); MCHC 33.7 g/dL (28.0-37.0); MCV 90.9 fL (80.0-100.0); MPV 9.1 fl. (7.2-11.1); RBC 3.67 mil/uL (4.20-5.00); RDW-CV 14.2 % (10.5-14.5); WBC 7.9 thou/uL (4.0-11.0)
[2020-02-11 05:33] LABS: CALCIUM 8.2 mg/dL (8.5-10.1); CREATININE 0.9 mg/dL (0.6-1.3); POTASSIUM 3.9 mmol/L (3.5-5.1)
[2020-02-11 09:03] VITALS: BP 154/61
[2020-02-11 21:00] VITALS: BP 142/58
[2020-02-12 08:00] VITALS: BP 163/70
[2020-02-12 20:13] VITALS: BP 144/57
[2020-02-13 09:22] VITALS: BP 150/71
[2020-02-13 20:12] VITALS: BP 136/66
[2020-02-14 09:00] VITALS: BP 143/64
[2020-02-14 15:13] LABS: CALCIUM 8.7 mg/dL (8.5-10.1); CREATININE 1.1 mg/dL (0.6-1.3); MAGNESIUM 1.9 mg/dL (1.8-2.4); PHOSPHORUS* 3.2 mg/dL (2.5-4.9); POTASSIUM 4.3 mmol/L (3.5-5.1)
[2020-02-14 20:15] VITALS: BP 127/56
[2020-02-15 08:41] VITALS: BP 129/75
--- NOTE | 2020-02-15 18:02 | CON ---
[address] [address] CONSULTATION Name: JUAN F DING Kirk Room: [address] IN M.R.#: [id number] Admission: 02/10/20 Attend Phys: Lisandro Villatoro MD Discharge: Date of : 35 Report #: [id number] THIS REPORT FOR: //name// cc: Rakesh Curry Gregg R. DO ~ THIS REPORT FOR: //name// CC: Rakesh Crury DO Lisandro Villatoro DICTATED BY: Kathryn Seals [facility] DATE OF SERVICE: 02/12/2020 Please note at the time of this dictation, the patient was seen and physically examined by myself. REASON FOR CONSULTATION: Diarrhea. 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 She was noted since coming here that she has been taking off her verapamil and given something different. She states prior to her coming into hospital and being off her verapamil, she states her bowels were soft and formed and she may have one loose stool, may be a day but it was well controlled and she had no problems. The patient states that ever since then, they stopped given her verapamil her, her bowels have become more loose, she may go 6-7 times a day. The patient did have a cholecystectomy back in the 1980s. She states she did have a colonoscopy done at [facility] about 6 months ago and everything was normal. We will obtain those records. She did have an EGD and colonoscopy with us back in 2006. 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 At that time recommended a 5-year followup, but she was seeing Dr. Morris at that time. Otherwise, no other complaints at this time. ALLERGIES: BETA BLOCKERS, CODEINE, PENICILLIN AND SULFA. MEDICATIONS FROM HOME: See MAR for medications at home. PAST MEDICAL HISTORY: Heart disease, hypertension, renal disease, and hypothyroidism. PAST SURGICAL HISTORY: She has had hysterectomy, history of uterine cancer. [place] [address] CONSULTATION Name: JUAN F DING Room: [address] IN [facility]#: [id number] Admission: 02/10/20 Attend Phys: Lisandro Villatoro MD Discharge: Date of : 35 Report #: [id number] FAMILY HISTORY: Negative for any GI or female cancers. SOCIAL HISTORY: Nonsmoker, nondrinker, and she lives with family. REVIEW OF SYSTEMS: A 12-point review of systems is essentially negative except what is mentioned in the HPI. PHYSICAL EXAMINATION: VITAL SIGNS: Temperature 36.8, pulse 68, respirations 20, blood pressure 163/70. HEART: Regular rate and rhythm. LUNGS: Clear. ABDOMEN: Soft, positive bowel sounds in all 4 quadrants with no masses or tenderness noted. LABORATORY DATA: White count is 7.9, hemoglobin is 11.2, platelets is 191. GFR is 60. She did have a CT of the abdomen and pelvis that was done on the and it was completely normal. IMPRESSION: 1. Diarrhea, likely related to absence of her medication, verapamil. 2. History of uterine cancer. PLAN: 1. Obtain records from [facility]. 2. Nurses discussing with her hospitalist about getting her restarted on her verapamil and we will await response to her diarrhea at that time. 3. Further recommendations to be made once Dr. Crouch sees the patient later today. Thank you for allowing us to participate in this patient's care. Please do not hesitate to call with any questions in regard to this consult. <ELECTRONICALLY SIGNED> By: Suman Crouch DO 02/15/20 1802 1105 1454Suman Crouch DO /nt
[2020-02-15 20:18] VITALS: BP 123/57
[2020-02-16 07:59] VITALS: BP 143/65
[2020-02-16 13:56] LABS: HEMATOCRIT 37.6 % (37.0-47.0); HEMOGLOBIN 12.7 gm/dL (12.0-15.0); MCH 29.9 pg (26.0-34.0); MCHC 33.8 g/dL (28.0-37.0); MCV 88.4 fL (80.0-100.0); MPV 9.7 fl. (7.2-11.1); RBC 4.26 mil/uL (4.20-5.00); RDW-CV 14.3 % (10.5-14.5); WBC 8.3 thou/uL (4.0-11.0)
[2020-02-16 14:09] LABS: ALBUMIN 3.3 g/dL (3.4-5.0); CALCIUM 9.1 mg/dL (8.5-10.1); CREATININE 1.3 mg/dL (0.6-1.3); POTASSIUM 4.2 mmol/L (3.5-5.1); TOTAL BILIRUBIN 0.3 mg/dL (<0.1-1.0); TOTAL PROTEIN 7.4 g/dL (6.4-8.2)
[2020-02-16 19:30] VITALS: BP 125/60
[2020-02-17 10:22] VITALS: BP 134/55
[2020-02-17 19:10] VITALS: BP 113/60
[2020-02-18 08:23] VITALS: BP 131/57
[2020-02-18 20:18] VITALS: BP 143/53
[2020-02-19 04:42] LABS: ALBUMIN 3.1 g/dL (3.4-5.0); CALCIUM 9.3 mg/dL (8.5-10.1); CREATININE 1.3 mg/dL (0.6-1.3); MAGNESIUM 1.9 mg/dL (1.8-2.4); PHOSPHORUS* 3.6 mg/dL (2.5-4.9); POTASSIUM 4.3 mmol/L (3.5-5.1)
[2020-02-19 08:00] VITALS: BP 127/58
[2020-02-19 20:00] VITALS: BP 112/41; BP 125/47
[2020-02-20 08:35] VITALS: BP 143/60
--- NOTE | 2020-02-20 10:04 | EKG ---
[place] [address] ELECTROCARDIOGRAM REPORT Name: JUAN F DING Room: [address] ADM IN M.R.#: [id number] Admission: 02/10/20 Attend Phys: Lisandro Villatoro MD Discharge: Date of : 35 Date of Service: 02/20/2017 Report #: [id number] THIS REPORT FOR: //name// [facility] Test Date: 2020-02-20 Test Time: 09:17:02 Pat Name: JUAN F DING Department: Room: [address] Gender: F French Tutor: : 1935 Requested By: Ingrid Plummer Order Number: [id number] Olena MD: Elliott Bernstein Measurements Intervals [place] Rate: 65 P: -8 VT: 115 QRS: 34 QRSD: 100 T: 48 QT: 389 QTc: 405 Interpretive Statements Sinus rhythm Borderline short VT interval Compared to ECG 02/04/2020 13:37:41 No significant changes Electronically Signed On 02-20-2020 10:02:47 CDT by Elliott Bernstein [email or web address] <ELECTRONICALLY SIGNED> By: Elliott Bernstein MD, FACC 02/20/20 1002 0917 09 Elliott Bernstein MD, FAC /EPI
[2020-02-20 10:57] VITALS: BP 143/60
[2020-02-20] MEDS ORDERED: SERTRALINE HCL50 MG PO (12:07)
[2020-02-20] MEDS ORDERED: VERAPAMIL E.R240 M1 PO (12:09)
[2020-02-20 13:42] LABS: CALCIUM 9.2 mg/dL (8.5-10.1); CREATININE 1.4 mg/dL (0.6-1.3); POTASSIUM 4.2 mmol/L (3.5-5.1)
[2020-02-20 13:46] LABS: PHOSPHORUS* 3.3 mg/dL (2.5-4.9)
[2020-02-20] MEDS ORDERED: LOMOTIL TABLET1 EACH PO (14:26)
== END 2020-02-20 15:12 | disposition home health service (06) | DRG 91 ==
LOC: M.REH 19:21
PROVIDERS: Family Medicine; ADMIT Physical Medicine & Rehabilitation
DX: G92 Toxic encephalopathy (principal); D66 Hereditary factor VIII deficiency; N17.9 Acute kidney failure, unspecified; E44.1 Mild protein-calorie malnutrition; F03.90 Unspecified dementia, unspecified severity, without behavioral disturbance, psychotic disturbance, mood disturbance, and anxiety; I10 Essential (primary) hypertension; E03.9 Hypothyroidism, unspecified; J45.909 Unspecified asthma, uncomplicated; E86.0 Dehydration; Z68.29 Body mass index [BMI] 29.0-29.9, adult; Z88.0 Allergy status to penicillin; Z88.2 Allergy status to sulfonamides; Z88.6 Allergy status to analgesic agent; Z88.8 Allergy status to other drugs, medicaments and biological substances; Z90.710 Acquired absence of both cervix and uterus; Z90.49 Acquired absence of other specified parts of digestive tract; Z85.42 Personal history of malignant neoplasm of other parts of uterus; R29.6 Repeated falls; K52.9 Noninfective gastroenteritis and colitis, unspecified; R53.81 Other malaise